=== PATIENT | female | born 1955 | race Caucasian/White ===

== ENCOUNTER 2024-10-30 10:03 | Emergency (ER) | payer MEDICARE ==
[2024-10-30] MEDS ORDERED: Doxycycline 100 MG Cap ONE (10:30)
[2024-10-30] MEDS ORDERED: Cyclobenzaprine 5 MG Tab PO ONE (13:24)
[2024-10-30] MEDS ORDERED: Morphine 4 MG/ML VIAL IVPUSH ONE (13:27)
== END 2024-10-30 10:40 | disposition home or self-care (01) ==
LOC: LB.ED 10:03
DX: S30.860A Insect bite (nonvenomous) of lower back and pelvis, initial encounter (principal); Z88.0 Allergy status to penicillin; Z88.1 Allergy status to other antibiotic agents; Z88.8 Allergy status to other drugs, medicaments and biological substances; Z87.891 Personal history of nicotine dependence; W57.XXXA Bitten or stung by nonvenomous insect and other nonvenomous arthropods, initial encounter; Y93.89 Activity, other specified
CPT/HCPCS: 99281; 99283; A9270-GY